=== PATIENT | male | born 1965 | race Hispanic/Latino ===

== ENCOUNTER → 2018-01-08 | Outpatient (CLI) | payer OTHER ==
--- NOTE | 2018-01-08 14:04 | Diagnostic Imaging Report ---
Exam: Lumbar spine, 5 views History: Spondylosis without myelopathy Comparison: None. Findings: There are 5 nonrib-bearing lumbar-type vertebral bodies. No acute, displaced fracture or subluxation. No pars interarticularis defects are identified on the oblique radiographs. Multilevel disc space narrowing and marginal osteophytosis affecting lower thoracic and lumbar spine. The most extensive changes are at L4-5 and L5-S1 with bilateral facet arthropathy at these levels. Sacroiliac joints are well-maintained. Impression: No acute osseous abnormality. Multilevel degenerative disc disease and facet arthropathy of the lumbar spine as detailed above. Signed by: Dr. Dominick Pratt M.D. on 01/08/2018 2:01 PM
--- NOTE | 2018-01-08 14:09 | Diagnostic Imaging Report ---
Exam: Sacrum 2 views History: Spondylosis without myelopathy Comparison: Lumbar spine x-ray same day Findings: No acute, displaced fracture or dislocation. Sacral foramina are intact superiorly on the frontal radiograph. Inferiorly, the sacrum is obscured by rectal gas and stool. Sacroiliac joints are well-maintained. Soft tissues are unremarkable. Degenerative changes of the lumbosacral junction seen to better advantage on comparison lumbar spine radiographs. Impression: No acute osseous abnormality. Signed by: Dr. Dominick Pratt M.D. on 01/08/2018 2:06 PM
== END ==
LOC: RAD 13:05
PROVIDERS: ATTEND Internal Medicine
DX: M47.817 Spondylosis without myelopathy or radiculopathy, lumbosacral region (principal)
CPT/HCPCS: 72110; 72220

== ENCOUNTER → 2018-01-15 | Outpatient (CLI) | payer OTHER ==
--- NOTE | 2018-01-15 14:03 | Diagnostic Imaging Report ---
EXAM: CT Abdomen and Pelvis WITHOUT contrast INDICATION: Evaluate for stone COMPARISON: None. TECHNIQUE: Abdomen and pelvis were scanned utilizing a multidetector helical scanner from the lung base to the pubic symphysis without administration of IV contrast. Absence of intravenous contrast decreases sensitivity for detection of focal lesions and vascular pathology. Coronal and sagittal reformations were obtained. Routine protocol was performed. IV CONTRAST: None. ORAL CONTRAST: Water RADIATION DOSE: Total DLP: 835.7 mGy*cm Estimated effective dose: (DLP x 0.015 x size factor) mSv COMPLICATIONS: None FINDINGS: LINES and TUBES: None. LOWER THORAX: Unremarkable HEPATOBILIARY: No focal hepatic lesions. No biliary ductal dilation. GALLBLADDER: No radio-opaque stones or sludge. No wall thickening. SPLEEN: No splenomegaly. PANCREAS: No focal masses or ductal dilatation. ADRENALS: No adrenal nodules KIDNEYS/URETERS: There is mild left perinephric and periureteral stranding. There is asymmetric soft tissue fullness along the anterior aspect of the left mid pole kidney on series 61, image 199, without discrete mass or cystic lesion. No stones. No hydronephrosis. GI TRACT: No abnormal distention, wall thickening, or evidence of bowel obstruction. Small bowel anastomosis is present in the right lower abdomen. Per the patient, status post appendectomy. PELVIC ORGANS/BLADDER: Unremarkable. LYMPH NODES: No lymphadenopathy. VESSELS: Scattered atherosclerotic vascular calcifications of the abdominal aorta and branch vessels. PERITONEUM / RETROPERITONEUM: No free air or fluid. BONES AND SOFT TISSUES: Unremarkable. IMPRESSION: No evidence of stone. Left perinephric and periureteral stranding which may reflect infectious process or passed stone. Apparent soft tissue fullness along the left mid pole kidney anteriorly without discrete mass. This likely reflects a renal cortical lobulation, however a renal ultrasound is suggested to exclude underlying mass. Signed by: Dr. Antoni Shine MD on 01/15/2018 2:00 PM
== END ==
LOC: CT 12:40
PROVIDERS: ATTEND Internal Medicine
DX: N10 Acute pyelonephritis (principal); R31.9 Hematuria, unspecified
CPT/HCPCS: 74176

== ENCOUNTER → 2018-10-15 | Outpatient (CLI) | payer OTHER ==
--- NOTE | 2018-10-15 14:40 | Diagnostic Imaging Report ---
EXAM: Renal Ultrasound INDICATION: ^HEMATURIA COMPARISON: None TECHNIQUE: Transverse and longitudinal images of the kidneys and bladder were obtained. FINDINGS: Incidental note of increased hepatic parenchymal echogenicity. Right Kidney: Length: 11.6 cm Appearance: Normal echogenicity. Collecting system: No hydronephrosis Stones: None Cyst/Mass: None Left Kidney: Length: 10.4 cm Appearance: Normal echogenicity. Collecting system: No hydronephrosis Stones: None Cyst/Mass: None Bladder: No stones, mass lesion, or wall thickening. Estimated prevoid volume of 13.5 cc. Bilateral ureteral jets seen. IMPRESSION: No renal mass or calculi. No hydronephrosis. Hepatic steatosis. Signed by: Jaquelin Escobar MD on 10/15/2018 2:37 PM
== END ==
LOC: US 13:37
PROVIDERS: ATTEND Internal Medicine
DX: R31.9 Hematuria, unspecified (principal)
CPT/HCPCS: 76770

== ENCOUNTER → 2020-01-06 | Outpatient (CLI) | payer OTHER | LOC: RAD 08:49 | PROVIDERS: ATTEND Internal Medicine | DX: M47.817 Spondylosis without myelopathy or radiculopathy, lumbosacral region (principal) | CPT/HCPCS: 72050 ==

== ENCOUNTER → 2022-04-14 | Outpatient (CLI) | payer OTHER | LOC: RAD 08:40 | PROVIDERS: ATTEND Internal Medicine | DX: M17.11 Unilateral primary osteoarthritis, right knee (principal) ==